=== PATIENT | male | born 1990 | race Caucasian/White ===

== ENCOUNTER 2025-02-15 09:06 | Outpatient (CLI) | payer OTHER ==
[2025-02-15 10:24] LABS: COVID-19 AG POSITIVE (NEGATIVE)
== END 2025-02-15 15:50 | disposition home or self-care (01) ==
LOC: LAB 09:06
PROVIDERS: ATTEND Preventive Medicine Occupational Medicine
DX: J11.1 Influenza due to unidentified influenza virus with other respiratory manifestations (principal); Z20.828 Contact with and (suspected) exposure to other viral communicable diseases